=== PATIENT | female | born 1985 | race American Indian/Alaskan Native ===

== ENCOUNTER 2019-01-07 07:55 | Emergency (ER) | payer SELFPAY ==
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
[2019-01-07 09:34] VITALS: BP 130/80
== END 2019-01-07 08:46 | disposition home or self-care (01) ==
LOC: ED 07:55
DX: S50.11XA Contusion of right forearm, initial encounter (principal); I10 Essential (primary) hypertension; Z98.51 Tubal ligation status; Z79.899 Other long term (current) drug therapy; V89.2XXA Person injured in unspecified motor-vehicle accident, traffic, initial encounter; Y93.89 Activity, other specified; Y92.488 Other paved roadways as the place of occurrence of the external cause; Y99.8 Other external cause status
CPT/HCPCS: 99282

== ENCOUNTER 2019-01-07 09:02 | Emergency (ER) | payer SELFPAY ==
[2019-01-07 09:20] VITALS: BP 146/83
[2019-01-07 10:33] LABS: Bilirubin,Urine NEG (Negative); Blood,Urine NEG (Negative); Color,Urine Straw (Yellow); Mucus,Urine FEW /HPF; Protein,Urine <15 mg/dL mg/dL (Negative); Urobilinogen,Urine < 2.0 mg/dL (<2.0)
[2019-01-07 10:50] LABS: HCG Qualitative,Urine Negative (Negative)
== END 2019-01-07 10:41 | disposition left against medical advice (07) ==
LOC: ED 09:02
DX: R10.9 Unspecified abdominal pain (principal); Z53.21 Procedure and treatment not carried out due to patient leaving prior to being seen by health care provider
CPT/HCPCS: 81001; 81025